=== PATIENT | male | born 1975 | race Two or more races ===

== ENCOUNTER → 2020-03-30 | Outpatient (CLI) | payer OTHER ==
[~2020-03-30] MED LIST: AMLO-186 PO; ASPI-886 PO; CLOP75TA PO; DOXY100T PO; IBUP-1027 PO; LACT1CAP19 PO; METO-239 PO; PRED20TA PO
--- NOTE | 2020-03-31 00:24 | RAD ---
CLINICAL HISTORY: Reason: HEMATURIA / Spl. Instructions: / History: COMPARISON: None available. TECHNIQUE: Ultrasound examination of the bilateral kidneys and urinary bladder was performed. FINDINGS: The right kidney measures 13.3 cm in bipolar length. The renal cortex is normal in thickness. Renal e chogenicity is normal. There is no evidence for hydronephrosis, shadowing renal calculus or focal ab normality . The left kidney measures 11.4 cm in bipolar length. The renal cortex is normal in thickness. Renal ec hogenicity is normal. There is no evidence for hydronephrosis, shadowing renal calculus or focal abno rmality. Bladder is essentially decompressed and not well-visualized. IMPRESSION: Normal sonographic survey of the kidneys. Bladder is decompressed and not well-visualized. Electronically signed by: Pb Paris MD (03/31/2020 12:22 AM) EBER
== END ==
LOC: US 10:13
PROVIDERS: ATTEND Family Medicine
DX: R31.9 Hematuria, unspecified (principal)
CPT/HCPCS: 76770

== ENCOUNTER → 2020-11-25 | Outpatient (CLI) | payer OTHER ==
[2020-07-22 10:43] VITALS: BP 102/59
--- NOTE | 2020-11-25 13:44 | CARD ---
MR#: [id number] Date of Study: 11/25/2020 Ordering Physician: BJ LARSEN, Referring Physician: BJ LARSEN Tech: Mar Zhang [facility] APPROVED REPORT EXAM: Two-dimensional and M-mode echocardiogram with Doppler and color Doppler. Other Information Quality : AverageHR: 53bpm Rhythm : NSR INDICATION 2D DIMENSIONS RVDd4.2 (2.9-3.5cm)Left Atrium(2D)3.7 (1.6-4.0cm) IVSd0.9 (0.7-1.1cm)Aortic Root(2D)3.5 (2.0-3.7cm) LVDd4.6 (3.9-5.9cm)LVOT Diameter2.2 (1.8-2.4cm) PWd0.9 (0.7-1.1cm)LVDs3.4 (2.5-4.0cm) FS (%) 25.4 %SV48.0 ml Aortic Valve AoV Peak Reese.104.0cm/sAoV VTI26.2cm AO Peak GR.4.3mmHgLVOT Peak Reese.97.3cm/s AO Mean GR.2mmHgAVA (VMAX)3.59cm2 Mitral Valve MV E Kzzfhwmg72.4cm/sMV DECEL NDSI882cr MV A Gbfpubtx32.1cm/sE/A Ratio1.7 Pulmonary Valve PV Peak Txphrgzf33.7cm/s Tricuspid Valve TR P. Dmqjeidg039rs/sTR Peak Gr.17mmHg LEFT VENTRICLE The left ventricle is normal size. There is normal left ventricular wall thickness. The left ventricu lar systolic function is normal and the ejection fraction is within normal range. Estimated ejection fraction 55%. There is normal LV segmental wall motion. The left ventricular diastolic function and filling is normal for age. RIGHT VENTRICLE The right ventricle is normal size. There is normal right ventricular wall thickness. The right ventr icular systolic function is normal. ATRIA The left atrium size is normal. The right atrium size is normal. The interatrial septum is intact wit h no evidence for an atrial septal defect or patent foramen ovale as noted on 2-D or Doppler imaging. AORTIC VALVE The aortic valve is normal in structure and function. Doppler and Color Flow revealed no significant aortic regurgitation. There is no significant aortic valvular stenosis. MITRAL VALVE The mitral valve is normal in structure and function. There is no evidence of mitral valve prolapse. There is no mitral valve stenosis. Doppler and Color-flow revealed trace mitral regurgitation. TRICUSPID VALVE The tricuspid valve is normal in structure and function. Doppler and Color Flow revealed mild tricusp id regurgitation. Estimated PAP 20 mmHg. There is no tricuspid valve stenosis. PULMONIC VALVE The pulmonary valve is normal in structure and function. Doppler and Color Flow revealed no pulmonic valvular regurgitation. GREAT VESSELS The aortic root is normal in size. The ascending aorta is normal in size. The IVC is normal in size a nd collapses >50% with inspiration. PERICARDIAL EFFUSION There is no evidence of significant pericardial effusion. Critical Notification Critical Value: No <Conclusion> The left ventricle is normal size. The left ventricular systolic function is normal and the ejection fraction is within normal range. Estimated ejection fraction 55%. Doppler and Color Flow revealed no significant aortic regurgitation. There is no significant aortic valvular stenosis. Doppler and Color-flow revealed trace mitral regurgitation. Doppler and Color Flow revealed mild tricuspid regurgitation. Estimated PAP 20 mmHg. Signed by : Gurdeep Taylor MD Electronically Approved : 11/25/2020 13:43:54
== END ==
LOC: ECHO 07:49
PROVIDERS: ATTEND Internal Medicine Cardiovascular Disease
DX: I36.1 Nonrheumatic tricuspid (valve) insufficiency (principal); I42.9 Cardiomyopathy, unspecified
CPT/HCPCS: 93306